=== PATIENT | female | born 1950 | race Caucasian/White ===

== ENCOUNTER 2021-09-26 08:33 | Outpatient (CLI) | payer BC | END 2021-09-26 08:34 | disposition home or self-care (01) | LOC: RAD 08:33 | PROVIDERS: ATTEND Physician Assistant Medical | DX: K21.01 Gastro-esophageal reflux disease with esophagitis, with bleeding (principal); K44.9 Diaphragmatic hernia without obstruction or gangrene | CPT/HCPCS: 74220 ==

== ENCOUNTER 2022-02-23 12:01 | Outpatient (CLI) | payer BC | END 2022-02-23 12:02 | disposition home or self-care (01) | LOC: BICRAD 12:01 | PROVIDERS: ATTEND Physician Assistant Medical | DX: R05.9 Cough, unspecified (principal); K21.00 Gastro-esophageal reflux disease with esophagitis, without bleeding | CPT/HCPCS: 71046 ==

== ENCOUNTER 2022-03-02 11:05 | Outpatient (CLI) | payer BC | END 2022-03-02 11:06 | disposition home or self-care (01) | LOC: LABBT 11:05 | PROVIDERS: ATTEND Physician Assistant Medical | DX: Z20.822 Contact with and (suspected) exposure to COVID-19 (principal) | CPT/HCPCS: 87811 ==

== ENCOUNTER 2022-03-09 09:09 | Outpatient (CLI) | payer BC | END 2022-03-09 09:10 | disposition home or self-care (01) | LOC: RAD 09:09 | PROVIDERS: ATTEND Physician Assistant Medical | DX: K21.00 Gastro-esophageal reflux disease with esophagitis, without bleeding (principal); R05.9 Cough, unspecified; Z98.890 Other specified postprocedural states | CPT/HCPCS: 74220 ==

== ENCOUNTER 2023-08-22 07:53 | Outpatient (CLI) | payer BC | END 2023-08-22 07:54 | disposition home or self-care (01) | LOC: NM 07:53 | PROVIDERS: ATTEND Physician Assistant Medical | DX: R13.19 Other dysphagia (principal); K31.89 Other diseases of stomach and duodenum; R94.8 Abnormal results of function studies of other organs and systems | CPT/HCPCS: 78264; A9541 ==